=== PATIENT | male | born 1985 | race Caucasian/White ===

== ENCOUNTER 2019-04-12 10:32 | Emergency (ER) | payer BC ==
[~2019-04-12] VITALS: Ht 185.4 cm; Wt 81.8 kg
[~2019-04-12 10:32] MED LIST: AMOXICILLIN 8751 TAB PO; LORTAB 5/500 501 TAB PO; NO HOME MEDICATIONS; NORCO 325 MG-51 TAB PO; [UNRECOGNIZED DRUG - REMARK]
[2019-04-12 10:35] VITALS: TEMP 98.9
[2019-04-12 11:14] LABS: BASO % 0.2 % (0.0-2.0); EOS % 0.1 % (0-4.0); GRAN # 10.9 (1.4-6.5); GRAN % 88.4 % (42.2-75.2); HEMATOCRIT 47.6 % (42.0-52.0); LYMPH # 0.9 (1.2-3.4); LYMPH % 7.1 % (20.0-51.0); MEAN CELL VOLUME 83 fl (80.0-100.0); MEAN CORPUSCULAR HEMOGLOBIN 28 pg (27.0-31.0); MEAN CORPUSCULAR HGB CONC 34 g/dl (33.0-37.0); MEAN PLATELET VOLUME 9.1 fl (7.4-10.4); MONO # 0.5 (0.1-0.6); MONO % 3.9 % (1.7-9.3); PLATELET COUNT 342 K/mm3 (130-400); RED BLOOD COUNT 5.77 M/mm3 (4.20-5.60); REDCELL DISTRIBUTION WIDTH-CV 13.1 % (11.5-14.5)
[2019-04-12 11:28] LABS: ALBUMIN 4.9 gm/dL (3.5-5.0); BILIRUBIN,TOTAL 0.9 mg/dL (0.0-1.0); CALCIUM 10.4 mg/dL (8.4-10.2); CREATININE, serum 1.01 (0.66-1.25); POTASSIUM 4.1 mmol/L (3.4-5.0); TOTAL PROTEIN 8.8 gm/dL (6.4-8.2)
[2019-04-12 12:22] LABS: COLLECTION METHOD CLEAN CATCH
[2019-04-12] MEDS ORDERED: ZOFRAN ODT4 MG PO (12:22)
[2019-04-12 12:28] LABS: MUCOUS Present /lpf; PH 9 (5-8); SQUAMOUS EPITHELIAL 0-2 /hpf; URINE APPEARANCE Clear; URINE BACTERIA None Seen /hpf; URINE BILIRUBIN Negative (NEGATIVE); URINE BLOOD Negative (NEGATIVE); URINE COLOR Yellow; URINE GLUCOSE Negative (NEGATIVE); URINE KETONE 1+ (NEGATIVE); URINE LEUKOCYTE ESTERASE Negative (NEGATIVE); URINE NITRATE Negative (NEGATIVE); URINE PROTEIN(semi-quant) 1+ (NEGATIVE); URINE RBC 0-2 /hpf; URINE UROBILINOGEN Negative (NEGATIVE)
[2019-04-12 12:36] VITALS: BP 125/65; PULSE 97
== END 2019-04-12 12:38 | disposition home or self-care (01) ==
LOC: COL.ER 10:32
PROVIDERS: Physician Assistant
DX: K52.9 Noninfective gastroenteritis and colitis, unspecified (principal)
CPT/HCPCS: J0780; J2405; J7030

== ENCOUNTER 2020-03-10 13:38 | Emergency (ER) | payer BC ==
[~2020-03-10] VITALS: Ht 180.3 cm; Wt 79.5 kg
[~2020-03-10 13:38] MED LIST changes: +ZOFRAN ODT4 MG PO
[2020-03-10 13:48] VITALS: TEMP 97.7
[2020-03-10] MEDS ORDERED: PERCOCET 325 MG1 TA2 PO (14:42)
[2020-03-10] MEDS ORDERED: AMOXICILLIN 8751 TAB PO (14:42)
[2020-03-10 15:10] LABS: COLLECTION METHOD CLEAN CATCH
[2020-03-10 15:25] LABS: MUCOUS Present /lpf; SQUAMOUS EPITHELIAL 0-2 /hpf; URINE BACTERIA None Seen /hpf; URINE RBC 0-2 /hpf
[2020-03-10 15:30] LABS: PH 7 (5-8); URINE APPEARANCE Clear; URINE BILIRUBIN Negative (NEGATIVE); URINE BLOOD Negative (NEGATIVE); URINE COLOR Yellow; URINE GLUCOSE Negative (NEGATIVE); URINE KETONE Negative (NEGATIVE); URINE LEUKOCYTE ESTERASE Negative (NEGATIVE); URINE NITRATE Negative (NEGATIVE); URINE PROTEIN(semi-quant) Negative (NEGATIVE); URINE UROBILINOGEN Negative (NEGATIVE)
[2020-03-10 15:57] VITALS: BP 130/88; PULSE 87
== END 2020-03-10 15:58 | disposition home or self-care (01) ==
LOC: COL.ER 13:38
PROVIDERS: Emergency Medicine
DX: S81.852A Open bite, left lower leg, initial encounter (principal); S30.872A Other superficial bite of penis, initial encounter; W54.0XXA Bitten by dog, initial encounter; Y92.89 Other specified places as the place of occurrence of the external cause; Y99.0 Civilian activity done for income or pay
CPT/HCPCS: J1170

== ENCOUNTER → 2021-03-16 | Outpatient (CLI) | payer BC ==
[~2021-03-16] MED LIST changes: +PERCOCET 325 MG1 TA2 PO
[2021-03-16 14:51] LABS: ALBUMIN 4.7 gm/dL (3.5-5.0); BILIRUBIN,TOTAL 0.3 mg/dL (0.0-1.0); CALCIUM 9.3 mg/dL (8.4-10.2); CREATININE, serum 0.86 (0.66-1.25); POTASSIUM 4.2 mmol/L (3.4-5.0)
[2021-03-16 14:53] LABS: BASO % 0.3 % (0.0-2.0); EOS # 0.1 (0.0-0.7); EOS % 1.4 % (0-4.0); GRAN # 4.1 (1.4-6.5); HEMATOCRIT 43.4 % (42.0-52.0); HEMOGLOBIN 14.1 g/dl (13.5-18.0); LYMPH # 1.9 (1.2-3.4); LYMPH % 28.4 % (20.0-51.0); MEAN CELL VOLUME 87 fl (80.0-100.0); MEAN CORPUSCULAR HEMOGLOBIN 28 pg (27.0-31.0); MEAN CORPUSCULAR HGB CONC 33 g/dl (33.0-37.0); MEAN PLATELET VOLUME 9.3 fl (7.4-10.4); MONO # 0.5 (0.1-0.6); MONO % 7.6 % (1.7-9.3); PLATELET COUNT 359 K/mm3 (130-400); RED BLOOD COUNT 5.02 M/mm3 (4.20-5.60); REDCELL DISTRIBUTION WIDTH-CV 13.3 % (11.5-14.5)
== END ==
LOC: COL.LAB 14:19
PROVIDERS: Physician Assistant
DX: R10.11 Right upper quadrant pain (principal)

== ENCOUNTER → 2021-04-01 | Outpatient (CLI) | payer BC | LOC: COL.RAD 09:27 | DX: K82.8 Other specified diseases of gallbladder (principal) | CPT/HCPCS: A9537; J2805 ==